=== PATIENT | female | born 1995 | race Hispanic/Latino ===

== ENCOUNTER 2019-09-26 23:55 | Observation (INO) | payer OTHER ==
[~2019-09-26] VITALS: Ht 165.1 cm; Wt 71.7 kg
[2019-09-27] MEDS ORDERED: LACTATED RINGERS 1000ML 1,000 ML IV PRN (00:14)
[2019-09-27 00:41] LABS: APPEARANCE,URINE Clear (CLEAR); BILIRUBIN,URINE Negative (NEGATIVE); COLOR,URINE Yellow (YELLOW); GLUCOSE, URINE (UA) Negative (NEGATIVE); KETONES,URINE Negative (NEGATIVE); LEUKOCYTE ESTERASE ,URINE Negative (NEGATIVE); NITRATE,URINE Negative (NEGATIVE); OCCULT BLOOD,URINE Negative (NEGATIVE); PH,URINE 7.5 (5.0-8.0); PROTEIN,URINE Negative (NEGATIVE); UROBILINOGEN,URINE 0.2 mg/dL (0.2-1.0)
[2019-09-27 02:00] LABS: AMPHET/METH SCREEN,URINE NEGATIVE (NEGATIVE); BARBITURATE SCREEN, URINE NEGATIVE (NEGATIVE); BENZODIAZEPINES SCREEN,URINE NEGATIVE (NEGATIVE); CANNABINOID SCREEN,URINE NEGATIVE (NEGATIVE); COCAINE SCREEN,URINE NEGATIVE (NEGATIVE); OPIATE SCREEN,URINE NEGATIVE (NEGATIVE); PHENCYCLIDINE SCREEN,URINE NEGATIVE (NEGATIVE)
== END 2019-09-27 02:10 | disposition home or self-care (01) ==
LOC: EDH 23:55 → LDH 23:56 → UNDOADMOB 09-27 00:15 → UNDODISOB 09-27 02:10
PROVIDERS: ADMIT Obstetrics & Gynecology; ATTEND Obstetrics & Gynecology
DX: O62.9 Abnormality of forces of labor, unspecified (principal); Z3A.39 39 weeks gestation of pregnancy
CPT/HCPCS: 80305; 81003; 99284; G0378 ×2

== ENCOUNTER 2019-10-01 03:53 | Inpatient (IN) | payer OTHER ==
[~2019-10-01] VITALS: Ht 165.1 cm; Wt 72.1 kg
[2019-10-01 04:19] VITALS: BP 120/79
[2019-10-01] MEDS ORDERED: LACTATED RINGERS 1000ML 1,000 ML IV PRN (04:44)
[2019-10-01] MEDS ORDERED: OXYTOCIN-LR 20 UNITS/1000 ML 1,000 ML IV SCH (04:45)
[2019-10-01] MEDS ORDERED: AMPICILLIN 2GM+NS 100ML 100 ML IV SCH (04:45)
[2019-10-01] MEDS ORDERED: LACTATED RINGERS 1000ML 1,000 ML IV SCH (04:45)
[2019-10-01 04:53] LABS: HEMATOCRIT 33.8 % (36-48); MEAN CORPUSCULAR HEMOGLOBIN 24.2 pg (27.0-33.0); MEAN CORPUSCULAR HGB CONC 31.1 g/dL (32.0-36.0); MEAN CORPUSCULAR VOLUME 77.9 fL (79-99); PLATELET COUNT (AUTO) 286 K/uL (130-400); RED BLOOD CELL COUNT(AUTO) 4.34 MIL/uL (4.00-5.50); WHITE BLOOD COUNT (AUTO) 6.8 K/uL (4.8-10.8)
[2019-10-01] MEDS ORDERED: ROPIVACAINE 0.2% 100ML VIAL 100 ML EP SCH (05:00)
[2019-10-01] MEDS ORDERED: EPHEDRINE SULFATE 50 MG/ML AMPULE IVP PRN (05:00)
[2019-10-01] MEDS ORDERED: LACTATED RINGERS 500 ML 500 ML IV PRN (05:00)
[2019-10-01] MEDS ORDERED: NALOXONE HCL 0.4 MG/1 ML ML IV PRN (05:00)
[2019-10-01] MEDS ORDERED: OXYTOCIN 10 USP UNITS/ML 20 UNIT in LACTATED RINGERS 1000ML 1,000 ML IV SCH (06:00)
[2019-10-01] MEDS ORDERED: MEPERIDINE-PF 50 MG/ML SYG ONE (08:22)
[2019-10-01] MEDS ORDERED: MEPERIDINE-PF 50 MG/ML SYG IVP SCH (08:30)
[2019-10-01] MEDS ORDERED: PROMETHAZINE HCL 25 MG/ML 1ML AMPULE IM SCH (08:30)
[2019-10-01] MEDS ORDERED: AMPICILLIN 1GM+NS 50ML 50 ML IV SCH (08:45)
[2019-10-01] MEDS ORDERED: FENTANYL CITRATE PF 50 MCG/1 ML 2ML VIAL ONE (08:56)
[2019-10-01] MEDS ORDERED: GENTAMICIN SULFATE 120 MG in SODIUM CHLORIDE 0.9% 100 ML IV ONE (12:30)
[2019-10-01] MEDS ORDERED: ACETAMINOPHEN 325 MG TAB PO PRN (13:45)
[2019-10-01] MEDS ORDERED: IBUPROFEN 600 MG TABLET PO PRN (13:45)
[2019-10-01] MEDS ORDERED: WITCH HAZEL 1 PAD TP PRN (13:45)
[2019-10-01] MEDS ORDERED: LANOLIN 30GM OINTMENT TP PRN (13:45)
[2019-10-01] MEDS ORDERED: BENZOCAINE/LANOLIN/ALOE VERA 60 ML AEROSOL TP PRN (13:45)
[2019-10-01] MEDS ORDERED: ACETAMINOPHEN-CODEINE 300/30MG TAB PO PRN (13:45)
--- NOTE | 2019-10-01 14:45 | NUR ---
2 HOUR QBL= 108 ML
[2019-10-01 14:52] VITALS: BP 118/61
[2019-10-01] MEDS ORDERED: IBUPROFEN 100 MG/5 ML SUSP UDCUP PO PRN (16:15)
[2019-10-01] MEDS: IBUPROFEN 100 MG/5 ML SUSP UDCUP PO PRN (17:33)
[2019-10-01 19:30] VITALS: BP 115/74
[2019-10-01] MEDS ORDERED: DOCUSATE SODIUM 100 MG CAP PO SCH (21:00)
[2019-10-01] MEDS ORDERED: GENTAMICIN 80 MG/NS 100 ML PB 100 ML IV SCH (21:00)
[2019-10-01] MEDS: DOCUSATE NA 100MG/10ML UDCUP PO SCH (21:31)
[2019-10-01 23:49] VITALS: BP 101/58
[2019-10-02] MEDS ORDERED: IBUPROFEN 100 MG/5 ML SUSP UDCUP ONE (00:06)
[2019-10-02] MEDS: IBUPROFEN 100 MG/5 ML SUSP UDCUP PO PRN ×2 (00:43→09:31)
[2019-10-02 03:40] VITALS: BP 91/55
[2019-10-02 07:36] VITALS: BP 118/63
[2019-10-02 08:11] LABS: HEPATITIS Bs ANTIGEN SCREEN P Negative (Negative)
[2019-10-02] MEDS: DOCUSATE NA 100MG/10ML UDCUP PO SCH (09:30)
--- NOTE | 2019-10-02 11:35 | NUR ---
verbal and written discharge instructions given, informed of the follow up appointment, no prescription given. all questions answered, informed to call the doctor for future concerns, pt voiced understanding to all things discussed. Addendum: 10/02/19 at 1216 by ERICH ARANDA RN Amended: Links added.
[2019-10-02 11:50] VITALS: BP 113/65
[2019-10-02] MEDS ORDERED: DIPH,PERTUSS(ACELL),TET VAC/PF 0.5 ML VIAL IM SCH (12:00)
--- NOTE | 2019-10-02 12:55 | NUR ---
pt is dismissed in stable condition, brought to private car via wheelchair by guillermo Arteaga pcp Addendum: 10/02/19 at 1257 by ERICH ARANDA RN Amended: Links added.
== END 2019-10-02 12:55 | disposition home or self-care (01) | DRG 807 ==
LOC: EDH 03:53 → OBSVTOIN 03:54 → LDH 03:54 → WSH 14:50
PROVIDERS: ADMIT Obstetrics & Gynecology; ATTEND Obstetrics & Gynecology
PROC: 10E0XZZ Delivery of Products of Conception, External Approach (ICD-10-PCS; principal; 2019-10-01)
PROC: 0W8NXZZ Division of Female Perineum, External Approach (ICD-10-PCS; 2019-10-01)
PROC: 3E0R3BZ Introduction of Anesthetic Agent into Spinal Canal, Percutaneous Approach (ICD-10-PCS; 2019-10-01)
PROC: 00HU33Z Insertion of Infusion Device into Spinal Canal, Percutaneous Approach (ICD-10-PCS; 2019-10-01)
PROC: 3E0234Z Introduction of Serum, Toxoid and Vaccine into Muscle, Percutaneous Approach (ICD-10-PCS; 2019-10-01)
DX: O99.824 Streptococcus B carrier state complicating childbirth (principal); Z37.0 Single live birth; Z23 Encounter for immunization; Z3A.40 40 weeks gestation of pregnancy
CPT/HCPCS: 36415; 85027; 86592; 86850; 86900; 86901; 87340; 90715; A4314; A4606; G0378; J0290; J1580; J2175; J2590; J2795; J3010; J7120